=== PATIENT | female | born 1985 | race Caucasian/White ===

== ENCOUNTER → 2022-08-11 15:52 | Outpatient (CLI) | payer OTHER, SELFPAY ==
[2022-08-11 17:39] LABS: Hematocrit 26.6 % (36-46); Hemoglobin 8.9 g/dL (12.0-16.0)
[2022-08-11 18:24] LABS: Free T4, Direct Thyroxine 0.79 ng/dL (0.78-2.19)
[2022-08-11 18:38] LABS: Thyroid Stimulating Hormone 0.864 uIU/mL (0.47-4.68)
== END ==
PROVIDERS: Referring Provider Obstetrics & Gynecology; Visit Provider Obstetrics & Gynecology
DX: O99.280 Endocrine, nutritional and metabolic diseases complicating pregnancy, unspecified trimester (principal); Z3A.30 30 weeks gestation of pregnancy; E03.9 Hypothyroidism, unspecified
CPT/HCPCS: 36415; 84439; 84443; 85014; 85018

== ENCOUNTER → 2022-09-22 10:54 | Outpatient (CLI) | payer OTHER, SELFPAY ==
[2022-09-23 09:29] LABS: Strep Grp B PCR NEG for Grp B Strep
== END ==
PROVIDERS: Visit Provider Obstetrics & Gynecology
DX: Z3A.36 36 weeks gestation of pregnancy (principal); Z34.83 Encounter for supervision of other normal pregnancy, third trimester
CPT/HCPCS: 87653

== ENCOUNTER → 2022-10-01 14:48 | Outpatient (CLI) | payer OTHER, SELFPAY ==
[2022-10-01 16:31] LABS: Hematocrit 32.4 % (36-46); Hemoglobin 10.7 g/dL (12.0-16.0); Mean Corpuscular HGB Conc 33.2 % (30-36); Mean Corpuscular Hemoglobin 27.9 PG (26-34); Platelet Count 243 X10^3/uL (150-400); Red Blood Cell Count 3.85 X10^6/uL (4.0-5.2); Red Cell Distribution Width 16.6 % (11.6-14.8); White Blood Cell Count 7.4 X10^3/uL (4.5-11.0)
[2022-10-01 16:32] LABS: HEMOLYSIS < 15 (0-50); Iron 97 ug/dL (37-170)
[2022-10-01 16:39] LABS: Transferrin 335 mg/dL (206-381)
[2022-10-01 17:01] LABS: Add Manual Diff / Slide Review YES
[2022-10-01 17:03] LABS: Neutrophils Absolute Manual 4366 /uL (3000-5900); Total Cells Counted 100
[2022-10-01 17:04] LABS: RBC Morphology Normal Morphology
[2022-10-01 17:06] LABS: TSH w/ Reflex to FT4 0.41 uIU/mL (0.47-4.68)
[2022-10-01 17:37] LABS: Free T4, Direct Thyroxine 0.77 ng/dL (0.78-2.19)
[2022-10-02 17:33] LABS: Percent Iron Saturation 22 % (15-50); Total Iron Binding Capacity 437 ug/dL (265-497)
== END ==
PROVIDERS: Referring Provider Obstetrics & Gynecology; Visit Provider Obstetrics & Gynecology
DX: O99.013 Anemia complicating pregnancy, third trimester (principal); E03.9 Hypothyroidism, unspecified
CPT/HCPCS: 36415; 83540; 83550; 84439; 84443; 85007; 85025

== ENCOUNTER → 2022-10-02 12:27 | Outpatient (CLI) | payer OTHER, SELFPAY ==
--- NOTE | 2022-10-02 12:28 | DI.US.S_ITS ---
PROCEDURE: US OB FOLLOW UP INDICATIONS: Macrosomia OUTSIDE/PRIOR DATING DATA: Last menstrual period (LMP): Reported as 01/10/22 LMP-based estimated date of delivery (ADEEL): 10/17/22. First dating scan (date and location): Clinical history indicates none has been performed.. Estimated date of delivery (ADEEL) from first dating scan: Not applicable. The calculations are made using the LMP based ADEEL of 10/17/22. Please note that there is a relatively wide range of accuracy of clinically provided LMP dating, and therefore the calculations based on LMP may be significantly in error as result. TECHNIQUE: Real-time scanning was performed of the fetus, with image documentation. Endovaginal scanning: Not performed. COMPARISON: None. FINDINGS: A single living intrauterine gestation is present. Presentation: Vertex. Placenta: Placental position is anterior, without previa. Amniotic fluid index: 17.0 cm, normal range is 5-24 cm. Single deepest vertical pocket is 6.1 cm. heart rate: 163 beats per minute. Maternal cervical canal: Not visualized due to vertex deep pelvic positioning of the fetus. biometry: BPD 8.7 cm, 35 weeks 1 day. Head circumference 33.0 cm, 37 weeks 4 days. Abdominal circumference 40.4 cm, over 40 weeks, disproportionately large to other growth per parameters. Femur length 7.7 cm, 39 weeks 3 days. Clinically estimated gestational age and weight: 37 weeks 3 days, 4339 g, macrosomia. Estimated gestational age from initial scan: Reportedly not performed. Umbilical artery systolic/diastolic ratio assessment was performed yielding values of 1.8, 2.1, 2.5. IMPRESSION: The abdominal circumference is disproportionately large when compared to the 3 additional main growth parameters of development. The current abdominal circumference would predict a current gestational age of over 40 weeks but the remaining 3 would predict a current gestational age of 37 weeks 3 days. Amniotic fluid volume and umbilical artery systolic/diastolic ratios are normal. Reportedly no prior OB ultrasound was performed. Therefore the single reference point currently available is LMP date provided of 01/10/22. As stated above the LMP dates generally have reduced accuracy, and therefore calculations based on reported LMP date may be significantly in error. Please correlate clinically for whether an outside OB ultrasound was performed elsewhere. If so it should be obtained for review and an addendum report could be generated to this study. The delivery date from LMP is currently estimated to be 10/17/22. Current estimated weight is 4339 g, macrosomia (as clinically stated). Dictated by: Noel Roque M.D. on 10/02/2022 at 14:24 Approved by: Noel Roque M.D. on 10/02/2022 at 14:40
== END ==
PROVIDERS: Referring Provider Obstetrics & Gynecology; Visit Provider Obstetrics & Gynecology
DX: O26.843 Uterine size-date discrepancy, third trimester (principal); Z3A.37 37 weeks gestation of pregnancy
CPT/HCPCS: 76816

== ENCOUNTER 2022-10-12 19:04 | Inpatient (IN) | payer OTHER, SELFPAY ==
[2022-10-12 19:57] VITALS: BP 116/72
[2022-10-12 20:43] LABS: Add Manual Diff / Slide Review NO; Basophils Absolute Auto 100 /uL (0-100); Eosinophils Absolute Auto 300 /uL (0-450); Eosinophils Percent Auto 2.6 % (2-4); Hematocrit 32.7 % (36-46); Lymphocytes Absolute Auto 2400 /uL (1100-4500); Lymphocytes Percent Auto 24.7 % (25-40); Mean Corpuscular HGB Conc 33.8 % (30-36); Mean Corpuscular Hemoglobin 28.2 PG (26-34); Mean Corpuscular Volume 83.6 fL (80-100); Monocytes Absolute Auto 600 /uL (0-900); Neutrophils Absolute Auto 6400 /uL (1500-7000); Neutrophils Percent Auto 65.7 % (50-75); Platelet Count 248 X10^3/uL (150-400); Red Blood Cell Count 3.91 X10^6/uL (4.0-5.2); Red Cell Distribution Width 16.5 % (11.6-14.8); White Blood Cell Count 9.8 X10^3/uL (4.5-11.0)
[2022-10-12] MEDS: miSOPROStoL 25 MCG TABLET 50 MCG PO (20:46)
[2022-10-12 21:03] LABS: Glucose 116 mg/dL (70-100)
[2022-10-13] MEDS: ZOLPIDEM 5 MG TABLET PO (00:45)
[2022-10-13] MEDS: miSOPROStoL 25 MCG TABLET 50 MCG PO ×2 (00:45→06:43)
[2022-10-13] MEDS: LACTATED RINGERS 1,000 ML 100 ML IV (06:29)
--- NOTE | 2022-10-13 07:23 | P.HPOB_ITS ---
OB HPI Date/Time Date of admission: 10/12/22 Date Patient Seen: 10/13/22 Time Patient Seen: 07:23 History of Present Condition Chief complaint: IUP 39+2 wks EGA, Macrosomia, GBS NEG : 2 Para: 1 Estimated Date of Delivery: 10/17/22 Estimated Gestational Age (weeks): 39+2 Narrative: Nazia Leyva is a 36 year old , ADEEL 10/17/2022 admitted now at 39+ 5 weeks gestational age for ripening/induction due to macrosomia. course has been largely uneventful with solid dating and normal milestones throughout. Size greater than dates noted in 3rd trimester despite negative 1 hour GDM screen and recent ultrasound on 10/02/2022 confirms macrosomia with an EFW of 4339 gms in comparison to her previous vaginal delivery of a 7 lb. 9 oz. infant. GBS is negative. Indications Indication for induction OB: other ( macrosomia) History of Present care: good care Dating criteria: LMP confirmed by 1st trimester US Ultrasounds: normal 1st trimester US, normal mid trimester US and abnormal US findings (Macrosomia, 3rd trimester) Obstetrical complications: other (Macrosomia) Medical complications: none Preadmission Labs Blood type: A (+) positive -: Antibody screen: negative, GBS status: negative, HBsAG: negative, HIV: negative and RPR/VDLR: negative -: Chlamydia screen: not detected and Gonorrhea screen: not detected -: Rubella: immune and Varicella: immune HCT: 32.7 HCAB: negative PAP: Normal Quad screen: Normal (AFP testing negative) Cell-free DNA: Low risk female 1 hr GTT: 126 Prior (ies) History: x1 Evaluation Evaluation Baseline heart rate: 155 Variability: Moderate (11-25) monitor accelerations: Present Monitor Decelerations: Episodic and Variable Contraction Frequency (minutes): 4 Uterine Contraction Intensity: Mild Category of Tracing: Reactive Status: Category ll Dilation (cm): 3 Effacement (%): 60 Dilation: 3-4 cm Effacement: 60-70% station: -2 Position of cervix: mid Consistency: soft Desouza score: 8 Non-invasive Membranes Rupture Test: positive Comments: SROM, 0837, possible very light meconium staining [facility] Medical History (Updated 10/07/22 @ 10:25 by Enrique Vogt MD) Acne (~2001) Allergies (~1993) Anemia (~2002) Anxiety (~2011) Chicken pox (~1993) Depression (~2007) History of urinary incontinence (~2019) Hypothyroidism (~2012) Iron deficiency anemia PVC (premature ventricular contraction) (~1992) Seasonal allergies Surgical History (Updated 08/01/22 @ 21:05 by Casi Baum) Anesthesia History of dental surgery (~2000) Family History (Updated 08/01/22 @ 21:09 by Casi Baum) Mother Hypertension Hyperlipidemia Father Hypertension Skin cancer Kidney disease Hyperlipidemia Grandfather Kidney disease Lung cancer Hypertension Grandfather Heart attack Grandmother Heart disease Grandmother Bipolar disorder Mental health problem Brother Mental health problem Social History marital status: number of children: 1 household members: spouse and children lives independently: Yes caregiver/support person: Yes housing: condominium (duplex house) pets and animals: No education level: master's degree (pharmacology, drug development research) occupational status: previously employed current occupational exposures/hazards: No special becky needs: No travel history: recent (domestic only including cross-country move) seatbelt use: always helmet use: Yes water heater temp set < 120 deg: Yes working smoke detector in home: Yes fire extinguisher in home: Yes carbon monox detector in home: Yes firearms in home: No do you feel safe at home: Yes Smoking Status: Never smoker second hand exposure: No alcohol intake: former (Occasionally when not ) substance use type: does not use during the past year weight has: remained stable daily servings fruits/ve-4 caffeine: No Type(s) of exercise: none Meds Home Medications and Allergies Home Medications Medication Instructions Recorded Confirmed Type ferrous sulfate 325 mg (65 mg 325 mg PO DAILY 07/01/22 10/12/22 History iron) tablet loratadine 10 mg tablet (Allergy 10 mg PO DAILY 07/01/22 10/12/22 History Relief (loratadine)) prenat.vits,chidi,vai-qnbk-uofjp 1 tab PO DAILY 07/01/22 10/12/22 History sertraline 100 mg tablet (Zoloft) 100 mg PO DAILY 07/01/22 10/12/22 History levothyroxine 125 mcg tablet 125 mcg PO DAILY #60 tabs 08/25/22 10/12/22 Rx (Synthroid) Allergies Allergy/AdvReac Type Severity Reaction Status Date / Time No Known Drug Allergies Allergy Verified 10/12/22 19:59 Review of Systems Review of Systems Narrative: Problem-specific ROS positives included in HPI OB Exam Vital signs Blood Pressure: 111/72 Pulse Rate: 80 Respiratory Rate: 15 Temperature: 98.6 F HENMT Head: normal to inspection, normocephalic and atraumatic Eyes General: appearance normal, both eyes and all related structures Resp Effort & Inspection: normal respiratory effort and able to speak in complete sentences Auscultation: clear to auscultation bilaterally Cardio Rate: regular rate Rhythm: regular rhythm Heart Sounds: S1 normal, S2 normal and no murmurs Extremities Lower extremity: Yes normal to inspection GI Inspection: normal to inspection Palpation: Yes soft and Yes no hepatosplenomegaly Uterus Location (Fundal Height): 38 Estimated Weight (lbs): 9 Objective Imaging OB US 10/02/2022: Radiologist's impression: PROCEDURE:? US OB FOLLOW UP ? INDICATIONS:? Macrosomia ? OUTSIDE/PRIOR DATING DATA:? Last menstrual period (LMP):? Reported as 01/10/22 LMP-based estimated date of delivery (ADEEL):? 10/17/22.? First dating scan (date and location):? Clinical history indicates none has been performed..? Estimated date of delivery (ADEEL) from first dating scan:? Not applicable. The calculations are made using the LMP based ADEEL of 10/17/22.? Please note that there is a relatively wide range of accuracy of clinically provided LMP dating, and therefore the calculations based on LMP may be significantly in error as result. ? TECHNIQUE: Real-time scanning was performed of the fetus, with image documentation.? Endovaginal scanning:? Not performed. ? COMPARISON:? None. ? FINDINGS:? A single living intrauterine gestation is present.? Presentation:? Vertex.? Placenta:? Placental position is anterior, without previa.? ? Amniotic fluid index:? 17.0 cm, normal range is 5-24 cm. Single deepest vertical pocket is 6.1 cm.? ? heart rate:? 163 beats per minute.? Maternal cervical canal:? Not visualized due to vertex deep pelvic positioning of the fetus. ? biometry: ? BPD 8.7 cm, 35 weeks 1 day. Head circumference 33.0 cm, 37 weeks 4 days. Abdominal circumference 40.4 cm, over 40 weeks, disproportionately large to other growth per parameters. Femur length 7.7 cm, 39 weeks 3 days. Clinically estimated gestational age and weight:? 37 weeks 3 days, 4339 g, macrosomia.? Estimated gestational age from initial scan:? Reportedly not performed. ? Umbilical artery systolic/diastolic ratio assessment was performed yielding values of 1.8, 2.1, 2.5. ? IMPRESSION:? The abdominal circumference is disproportionately large when compared to the 3 additional main growth parameters of development.? The current abdominal circumference would predict a current gestational age of over 40 weeks but the remaining 3 would predict a current gestational age of 37 weeks 3 days.? Amniotic fluid volume and umbilical artery systolic/diastolic ratios are normal. ? Reportedly no prior OB ultrasound was performed.? Therefore the single reference point currently available is LMP date provided of 01/10/22.? As stated above the LMP dates generally have reduced accuracy, and therefore calculations based on reported LMP date may be significantly in error.? Please correlate clinically for whether an outside OB ultrasound was performed elsewhere.? If so it should be obtained for review and an addendum report could be generated to this study. ? The delivery date from LMP is currently estimated to be 10/17/22.? Current estimated weight is 4339 g, macrosomia (as clinically stated). Labs 10/12/22 20:25 10/12/22 20:25 Labs: Laboratory Results - last 24 hr 10/12/22 10/12/22 10/12/22 20:25 20:25 20:25 WBC 9.8 RBC 3.91 L Hgb 11.0 L Hct 32.7 L MCV 83.6 MCH 28.2 MCHC 33.8 RDW 16.5 H Plt Count 248 Neut % (Auto) 65.7 Lymph % (Auto) 24.7 L [place] % (Auto) 6.0 Eos % (Auto) 2.6 Baso % (Auto) 1.0 Neut # (Auto) 6400 Lymph # (Auto) 2400 [place] # (Auto) 600 Eos # (Auto) 300 Baso # (Auto) 100 Glucose 116 H Blood Type A Positive Antibody Screen Negative Assessment and Plan Assessment and Plan Assessment and Plan narrative: ASSESSMENT 1. Intrauterine , 39+2 wks EGA 2. Macrosomia 3. Anemia, chronic 4. GBS negative status PLAN 1. Admit for ripening/induction 2. See admission orders
[2022-10-13 09:42] VITALS: BP 111/72; PULSE 80; RESP 15; TEMP 37
[2022-10-13] MEDS: OXYTOCIN 10 UNIT/ML VIAL IM (14:37)
--- NOTE | 2022-10-13 14:57 | PM.OBPRVD ---
Events: Other (Macrosomia) Labor & Delivery Delivery date: 10/13/22 Intrapartal Events: None Cervical ripening method: per misoprostal protocol Induction method: none Delivery monitor: external FHT and external uterine Route of delivery: Episiotomy description: None L&D Laceration Description: Perineal - 2nd Degree Delivery repair: chromic Estimated blood loss (mL): 75 Anesthesia Type: Local Complications: None Narrative: Following a minute 2nd stage, the patient delivered spontaneously over an intact perineum a viable female infant found to be vigorous at . A single nuchal cord was noted and reduced following delivery of the infant. Skin to skin contact was initiated immediately and delayed cord clamping performed. Once the umbilical cord was doubly clamped and cut, sample of cord blood was obtained for routine studies. With gentle cord traction and suprapubic countertraction, the placenta was delivered easily and upon inspection, a marginal cord insertion was noted with three-vessel cord. The placenta itself was intact. IM Pitocin was administered immediately following delivery of the placenta and post delivery bleeding was easily controlled. Inspection of the perineum showed a superficial second-degree perineal laceration which was closed with 2-0 chromic in the usual manner. Sponge needle count following procedure was correct and both mother and infant were doing well at the completion of the delivery process. Baby 1: Infant gender: Female Presentation: vertex Position: Left Occiput Anterior Placenta delivery description: Spontaneous Cord Vessel Description: 3 Vessels and Nuchal Cord score (1 min): 9 score (5 min): 9 weight: 7 lb 9.801 oz Plan for aftercare: Routine care
[2022-10-13] MEDS: IBUPROFEN 600 MG TABLET PO (19:58)
[2022-10-14 06:17] LABS: Add Manual Diff / Slide Review NO; Basophils Absolute Auto 100 /uL (0-100); Basophils Percent Auto 0.6 % (0-2); Eosinophils Absolute Auto 300 /uL (0-450); Eosinophils Percent Auto 1.9 % (2-4); Hematocrit 28.8 % (36-46); Hemoglobin 9.7 g/dL (12.0-16.0); Lymphocytes Absolute Auto 3500 /uL (1100-4500); Lymphocytes Percent Auto 27.2 % (25-40); Mean Corpuscular HGB Conc 33.5 % (30-36); Mean Corpuscular Hemoglobin 28.3 PG (26-34); Mean Corpuscular Volume 84.7 fL (80-100); Monocytes Absolute Auto 900 /uL (0-900); Monocytes Percent Auto 7.1 % (3-14); Neutrophils Absolute Auto 8200 /uL (1500-7000); Neutrophils Percent Auto 63.2 % (50-75); Platelet Count 222 X10^3/uL (150-400); Red Blood Cell Count 3.41 X10^6/uL (4.0-5.2); Red Cell Distribution Width 16.6 % (11.6-14.8)
[2022-10-14] MEDS: DOCUSATE 100 MG CAPSULE PO (08:47)
[2022-10-14] MEDS: SERTRALINE 50 MG TABLET 100 MG PO (08:47)
[2022-10-14] MEDS: LORATADINE 10 MG TABLET PO (08:47)
[2022-10-14] MEDS: IBUPROFEN 600 MG TABLET PO ×2 (09:07→16:26)
[2022-10-14] MEDS: LEVOTHYROXINE 125 MCG TABLET PO (09:17)
--- NOTE | 2022-10-14 12:52 | PM.OBDS.1 ---
Discharge Providers Provider Date of admission: 10/12/22 19:04 Discharge Date: 10/14/22 Consults: 10/12/22 19:13 Consult to Anesthesiology Urgent Comment: Consulting Provider: Enrique Vogt Reason for consultation: Epidural Has provider been notified: No 10/14/22 14:53 Consult to [employer] Records Clerk Routine Comment: Discharge provider: Enrique Vogt MD Summary Hospital Course Date Patient Seen: 10/14/22 Time Patient Seen: 12:52 Diagnoses: Intrauterine gestation, 39+ 2 weeks gestational age Suspected macrosomia Chronic anemia GBS negative status Hospital Course: Nazia was admitted on the evening 10/12/2022 for cervical ripening and induction due to suspected macrosomia based on an ultrasound performed in mid September which demonstrated an estimated weight of greater than 4300 g. Patient received a total of 3 doses of oral Cytotec and labor ensued. On the morning of 10/13/2022 patient experienced spontaneous rupture membranes demonstrating light meconium and she progressed well without Pitocin augmentation to deliver on the afternoon of 10/13/2022 a viable female infant with Apgars of 9/9, weight 3453 g (7 lb 9.8 oz). Following delivery both mother and baby have done extremely well with the mother experiencing prompt return of bowel and bladder function, she is ambulating independently, tolerating regular diet, and her pain is well controlled with oral pain medications. She will be discharged at this time to home after counseling regarding precautionary symptoms, limitations activity, medications, and plans for follow-up which will be in 6 weeks. The patient will resume all pre delivery medications and an electronic prescription for ibuprofen 600 mg p.o. q.6 hours was sent to her pharmacy. Peripartum Data Delivery Method: Natural Vaginal Laceration Description: Perineal - 2nd Degree Episiotomy description: None Procedures: Spontaneous vaginal Repair, second-degree perineal laceration complications: none 1: Gender: Female Disposition of : home Status at Discharge Cognitive/behavioral status at discharge: oriented Functional status at discharge: independent ambulation Overall status at discharge: patient is progressing back to baseline Time Spent with Patient Time attestation: Total time spent providing and/or coordinating discharge services: Time spent: Less than 30 minutes Objective Labs 10/14/22 05:57 10/12/22 20:25 Labs: Laboratory Results - last 24 hr 10/14/22 05:57 WBC 13.0 H RBC 3.41 L Hgb 9.7 L Hct 28.8 L MCV 84.7 MCH 28.3 MCHC 33.5 RDW 16.6 H Plt Count 222 Neut % (Auto) 63.2 Lymph % (Auto) 27.2 [place] % (Auto) 7.1 Eos % (Auto) 1.9 L Baso % (Auto) 0.6 Neut # (Auto) 8200 H Lymph # (Auto) 3500 [place] # (Auto) 900 Eos # (Auto) 300 Baso # (Auto) 100 Exam Const General: cooperative and comfortable Nutritional Appearance: average body habitus Orientation: alert and oriented x3 HENMT Head: normal to inspection, atraumatic and abrasion Ears: hearing grossly normal bilaterally Face and sinus: face symmetric Eyes General: appearance normal, both eyes and all related structures Conjunctivae: conjunctivae normal Sclera: sclerae normal EOM: EOM intact bilaterally Neck Neck: normal visual inspection Resp Effort & Inspection: normal respiratory effort and able to speak in complete sentences GI Inspection: normal to inspection Palpation: soft and no hepatosplenomegaly External Female Exam: other (No significant bleeding noted) Extrem General: no calf tenderness Psych Appearance: grossly normal Mental Status: mental status grossly normal Speech and Movement: speech and movement normal Mood: congruent mood Affect: normal affect Attitude: cooperative Thought Process: normal Thought Content: normal Judgment: judgment good Discharge Plan Discharge Plan Patient Disposition: Home Provider Discharge Comment: Please review the written instructions you received when you were discharged from the hospital. Your follow-up appointment will be scheduled for 6 weeks after delivery and I look forward to seeing you then. If however in the meanwhile you have any issues, concerns, or questions, please contact me either through the office phone at [phone], or via the patient portal. Discharge orders & Medications Prescriptions: New ibuprofen 600 mg Tablet 600 mg PO Q6HR PRN (Reason: Pain, Mild (1-3)) Qty: 60 2RF Continued levothyroxine [Synthroid] 125 mcg tablet 125 mcg PO DAILY Qty: 60 3RF prenat.vits,chidi,cdz-iqar-udhlw Tablet 1 tab PO DAILY sertraline [Zoloft] 100 mg tablet 100 mg PO DAILY loratadine [Allergy Relief (loratadine)] 10 mg tablet 10 mg PO DAILY ferrous sulfate 325 mg (65 mg iron) tablet 325 mg PO DAILY Discharge Health Status Multidrug resistant organism: No MDRO Diet/Activity/Treatments Diet: Diet as Tolerated Activity: As tolerated Other treatments: [id number] Tylenol may be used for additional pain relief. [id number] stool softeners and/or MiraLax may be used as needed for constipation. Skin/Wound/Dressing Care Report to your healthcare provider any signs of infection, such as:: chills, fever, increased pain, unusual drainage and unusual redness Dressing: N/A Visit Report/Discharge Packet Instructions: DI for Labor and Delivery, Vaginal , DI for and Nipple Soreness
[2022-10-14 16:20] VITALS: BP 108/58; PULSE 89; RESP 14; TEMP 37.1
== END 2022-10-14 18:45 | disposition home or self-care (01) | DRG 807 ==
PROVIDERS: Admitting Provider Obstetrics & Gynecology; Referring Provider Obstetrics & Gynecology; Visit Provider Obstetrics & Gynecology
DX: O36.63X0 Maternal care for excessive fetal growth, third trimester, not applicable or unspecified (principal); Z37.0 Single live birth; Z3A.39 39 weeks gestation of pregnancy; O70.1 Second degree perineal laceration during delivery; O99.02 Anemia complicating childbirth; D64.89 Other specified anemias
CPT/HCPCS: 36415; 59050; 59200; 59410; 82947; 85025; 86850; 86900; 86901; G0379; J2590

== ENCOUNTER → 2022-11-23 15:00 | Outpatient (CLI) | payer OTHER, SELFPAY ==
[2022-11-23 16:14] LABS: Free T3, Triiodothyronine Free 4.74 pg/mL (2.77-5.27)
[2022-11-23 16:35] LABS: Thyroid Stimulating Hormone < 0.015 uIU/mL (0.47-4.68)
== END ==
PROVIDERS: Referring Provider Physician Assistant Medical; Visit Provider Physician Assistant Medical
DX: E03.9 Hypothyroidism, unspecified (principal)
CPT/HCPCS: 36415; 84439; 84443; 84481

== ENCOUNTER 2023-05-11 08:15 | Outpatient (RCR) | payer OTHER, SELFPAY ==
--- NOTE | 2023-01-21 16:20 | PT.OIE ---
Current Diagnoses Pelvic muscle wasting (01/21/23) Unspecified urinary incontinence (01/21/23) Past Medical History (Last Updated 08/01/22 @ 21:05 by Casi Baum) Acne (~2001) Allergies (~1993) Anemia (~2002) Anxiety (~2011) Chicken pox (~1993) Depression (~2007) History of urinary incontinence (~2019) Hypothyroidism (~2012) Iron deficiency anemia PVC (premature ventricular contraction) (~1992) Seasonal allergies Past Surgical History (Last Updated 08/01/22 @ 21:05 by Casi Baum) Anesthesia History of dental surgery (~2000) Visit Care Team Role Provider Type Eugenio BIBI Provider Primary Care Provider Non-Staff Specialty: Medical Address: Phone: Email: Jessie Carranza PA-C Attending Provider Advanced Loading Supervisor Referring Provider Specialty: Medical Address: [address] [place] [address], [address], [place], [address] Phone: Fax: Email: Physical Therapy Initial Evaluation PT-OP-A Visit Information Start: 01/21/23 15:05 Freq: Status: Active Protocol: Document 01/21/23 15:07 ON LICENSE OF [facility] (Rec: 01/21/23 15:44 ON LICENSE OF [facility] [id number]) Out-Patient Physical Therapy Visit Information Visit Information Visit Type Initial Evaluation Visit Start Time 15:07 Visit Stop Time 15:52 Total Visit Minutes 45 Visit Number 1 Evaluation Information Evaluation Date 01/21/23 PT-OP-B Current Condition Start: 01/21/23 15:05 Freq: Status: Active Protocol: Document 01/21/23 15:07 [facility] (Rec: 01/21/23 15:44 ON LICENSE OF [facility] [id number]) Current Condition History of Current Condition Onset Date October 2022 Current Complaints urinary stress and urge incontinence History of Current Condition 10/13/22 had her second delivery and symptoms began after her first delivery September of 2019, she had a little tearing both times. She notes both symptoms of stress incontinence as well as urgency. Occasionally wakes up at night to void. She has a pad or absorbant underware on daily and most days she can go through the whole day and sometimes when she can't. Treatment Goals Patient/Caregiver Goals treatment goals include decreasing urinary incontinence and improving strength of the pelvic floor PT-OP-C Subjective Start: 01/21/23 15:05 Freq: Status: Active Protocol: Document 01/21/23 15:07 [facility] (Rec: 01/26/23 15:04 ON LICENSE OF [facility] [id number]) Patient Questionnaires Pelvic Pain and Urgency/Frequency Patient Symptom Scale Pelvic Pain Score 3 PT-OP-I Pelvic Floor Start: 01/21/23 15:05 Freq: Status: Active Protocol: Document 01/21/23 15:07 [facility] (Rec: 01/21/23 15:44 [facility] [id number]) Pelvic Floor Assessment Urine Pelvic Floor Surgery No Urinary Symptoms Urge Sensation Leakage Size Medium Leakage Cause Cough,Exercise,Lifting,Sneeze, Urge Leaks Per Day 3 Voiding Frequency 10 per day Nocturia 1 Pads Used In 24 Hours 3 Urine Pad Type Maxi Pad Pelvic Clock Pelvic Clock 12-3 Atrophy Pelvic Clock 3-6 Atrophy Pelvic Clock 6-9 Atrophy Pelvic Clock 9-12 Atrophy Pelvic Clock Other weakness and atrophy noted througout the pelvic clock Contraction Ability Voluntary Contraction Weak Voluntary Relaxation Weak Manual Muscle Testing Left 1 Manual Muscle Testing Right 1 Manual Muscle Testing Anterior 1 Manual Muscle Testing Posterior 2 Muscle Endurance (Seconds) 2 Comments Pelvic Floor Comments very poor endurance to sustain a pelvic floor contraction PT-OP-M Strength Start: 01/21/23 15:05 Freq: Status: Active Protocol: Document 01/21/23 15:07 [facility] (Rec: 01/26/23 15:03 ON LICENSE OF [facility] [id number]) Trunk Strength Trunk Manual Muscle Testing Testing Position Supine Core Stabilization core stabilization weakness of the transverse abdominal muscles , it is difficult to elicit a contraction of the transverse abdominals in supine PT-OP-Q Treatments Start: 01/21/23 15:05 Freq: Status: Active Protocol: Document 01/21/23 15:07 [facility] (Rec: 01/21/23 16:00 ON LICENSE OF [facility] [id number]) Therapeutic Exercises Supine Exercises supine ball squeeze Comments ball squeeze with pelvic floor facilitation pt can only hold 2-3 seconds PT-OP-T Assessment and Plan Start: 01/21/23 15:05 Freq: Status: Active Protocol: Document 01/21/23 15:07 [facility] (Rec: 01/21/23 16:08 ON LICENSE OF [facility] [id number]) Physical Therapy Assessment Rehab Potential Rehabilitation Potential Excellent Evaluation Complexity Number of Personal Factors/Comorbidities 0 Number of Body Systems Impaired 1-2 Clinical Presentation at Evaluation Stable Impairments Impairments Activity Tolerance,Functional Activities,Strength,Tone Other Impairments urinary stress incontinence Goals 3 Impairment urinary stress incontinence that is occuring approx 3 times per day and Nazia is wearing maxi pads for protection Jail Goal (LTG) Nazia reports a overall reduction in urinary leakage and is no longer needing to depend on Maxi pads for protection LTG Duration 12 weeks 2 Impairment Decreased endurance of the pelvic floor Short Term Goal (STG) Nazia is able to demonstrate a 10 second hold of her pelvic floor on EMG biofeedback in the supine position STG Duration 5 weeks Jail Goal (LTG) Nazia is able to sustain a pelvic floor muscle contraction x 10 seconds in standing LTG Duration 12 weeks 1 Impairment pelvic floor weakness with MMT of 1/5 for anterior and lateral bar[place] and 2/5 MMT for the posterior wall of the levator ani Short Term Goal (STG) Nazia is educated on pelvic floor anatomy and is given a home exercise program for pelvic floor strengthening STG Duration 3 weeks Jail Goal (LTG) Nazia demonstrates a increase in strength of her pelvic floor muscles and is able to raise he strength by 1 muscle grade or better for improved support to the bladder LTG Duration 12 weeks Assessment Summary Assessment Nazia is a 37 year old female who is 3 months with her second baby who presents with urinary stress incontinence symptoms. She notes her symptoms started after her first delivery but have worsened since her second delivery. At this point she is experiencing both urinary urgency as well as stress incontinence. She wears maxi pads for protection and usually changes her pad one time per day. Leakage is increased with cough or sneeze and walking to the toilet with a urge. With pelvic floor exam today Nazia present with weakness in all aspects of her pelvic floor, she tests 2/5 MMT for the posterior wall and 1/5 for lateral and anterior bar[place]ona of the levator ani. She has poor sensation of pelvic floor contraction and lacks endurance to sustain a pelvic floor contraction more than a few seconds in the supine position. She was given a exercise using adductor assit today to help facilitate her pelvic floor and she tolerated this well. Nazia is a good candidate for pelvic floor PT. Physical Therapy Plan Frequency and Duration Frequency of Treatment 1x/Week Duration of treatment (weeks) 12 Plan of Care Start Date 01/21/23 Plan of Care End Date 04/15/23 Therapeutic Interventions Therapeutic Interventions Home Exercise Program, Neuromuscular Re-education, Patient/Caregiver Education, Self-Care/Home Management, Therapeutic Exercises Modalities Biofeedback Next Visit Focus/Plan Next Note Type Treatment Note Next Visit Plan Work with EMG biofeedback for pelvic floor endurance training, add in lateral hip stabilization exercises and core stabilization ex
--- NOTE | 2023-01-21 16:20 | PT.OPPOC ---
Physical, Occupational & Speech Therapy At [facility] Current Diagnoses Pelvic muscle wasting (01/21/23) Unspecified urinary incontinence (01/21/23) Visit Care Team Role Provider Type Eugenio MTZ Provider Primary Care Provider Non-Staff Specialty: Medical Address: Phone: Email: Jessie Carranza PA-C Attending Provider Advanced Transmitter Supervisor Referring Provider Specialty: Medical Address: [address] [place] [address], [address], [place], [address] Phone: Fax: Email: Plan Of Care PT-OP-T Assessment and Plan Start: 01/21/23 15:05 Freq: Status: Active Protocol: Document 01/21/23 15:07 [facility] (Rec: 01/21/23 16:08 [facility] [id number]) Physical Therapy Assessment Rehab Potential Rehabilitation Potential Excellent Evaluation Complexity Number of Personal Factors/Comorbidities 0 Number of Body Systems Impaired 1-2 Clinical Presentation at Evaluation Stable Impairments Impairments Activity Tolerance,Functional Activities,Strength,Tone Other Impairments urinary stress incontinence Goals 3 Impairment urinary stress incontinence that is occurring approx 3 times per day and Nazia is wearing maxi pads for protection [employer] Goal (LTG) Nazia reports a overall reduction in urinary leakage and is no longer needing to depend on Maxi pads for protection LTG Duration 12 weeks 2 Impairment Decreased endurance of the pelvic floor Short Term Goal (STG) Nazia is able to demonstrate a 10 second hold of her pelvic floor on EMG biofeedback in the supine position STG Duration 5 weeks Skilled Nursing Goal (LTG) Nazia is able to sustain a pelvic floor muscle contraction x 10 seconds in standing LTG Duration 12 weeks 1 Impairment pelvic floor weakness with MMT of 1/5 for anterior and lateral bar[place]ona and 2/5 MMT for the posterior wall of the levator ani Short Term Goal (STG) Nazia is educated on pelvic floor anatomy and is given a home exercise program for pelvic floor strengthening STG Duration 3 weeks [employer] Goal (LTG) Nazia demonstrates a increase in strength of her pelvic floor muscles and is able to raise he strength by 1 muscle grade or better for improved support to the bladder LTG Duration 12 weeks Assessment Summary Assessment Nazia is a 37 year old female who is 3 months with her second baby who presents with urinary stress incontinence symptoms. She notes her symptoms started after her first delivery but have worsened since her second delivery. At this point she is experiencing both urinary urgency as well as stress incontinence. She wears maxi pads for protection and usually changes her pad one time per day. Leakage is increased with cough or sneeze and walking to the toilet with a urge. With pelvic floor exam today Nazia presents with weakness in all aspects of her pelvic floor, she tests 2/5 MMT for the posterior wall and 1/5 for lateral and anterior bar[place]ona of the levator ani. She has poor sensation of pelvic floor contraction and lacks endurance to sustain a pelvic floor contraction more than a few seconds in the supine position. She was given a exercise using adductor assit today to help facilitate her pelvic floor and she tolerated this well. Nazia is a good candidate for pelvic floor PT. Physical Therapy Plan Frequency and Duration Frequency of Treatment 1x/Week Duration of treatment (weeks) 12 Plan of Care Start Date 01/21/23 Plan of Care End Date 04/15/23 Therapeutic Interventions Therapeutic Interventions Home Exercise Program, Neuromuscular Re-education, Patient/Caregiver Education, Self-Care/Home Management, Therapeutic Exercises Modalities Biofeedback Next Visit Focus/Plan Next Note Type Treatment Note Next Visit Plan Work with EMG biofeedback for pelvic floor endurance training, add in lateral hip stabilization exercises and core stabilization ex Plan of Care Dates Plan of Care Start Date 01/21/23 Plan of Care End Date 04/15/23 Electronically Signed by: Marilyn Velazquez, PT 01/26/23 9826 If you are in agreement with this Plan of Care, please return a signed and dated copy. I have reviewed this Plan of Care and certify that the skilled therapy services above are required to meet the patient?s needs. Physician Signature Date Printed Name and Credentials Clinical Instructor Signature Printed Name and Credentials
--- NOTE | 2023-02-02 13:32 | PT.OTN ---
Current Diagnoses Pelvic muscle wasting (02/02/23) Unspecified urinary incontinence (02/02/23) Physical Therapy Treatment Note PT-OP-A Visit Information Start: 01/21/23 15:05 Freq: Status: Active Protocol: Document 02/02/23 09:50 [facility] (Rec: 02/02/23 10:35 [facility] [id number]) Out-Patient Physical Therapy Visit Information Visit Information Visit Type Treatment Note Visit Start Time 09:50 Visit Stop Time 10:30 Total Visit Minutes 40 Visit Number 2 PT-OP-B Current Condition Start: 01/21/23 15:05 Freq: Status: Active Protocol: Document 01/21/23 15:07 [facility] (Rec: 01/21/23 15:44 [facility] [id number]) Current Condition History of Current Condition Onset Date October 2022 Current Complaints urinary stress and urge incontinence History of Current Condition 10/13/22 had her second delivery and symptoms began after her first delivery September of 2019, she had a little tearing both times. She notes both symptoms of stress incontinence as well as urgency. Occasionally wakes up at night to void. She has a pad or absorbant underware on daily and most days she can go through the whole day and sometimes when she can't. Treatment Goals Patient/Caregiver Goals treatment goals include decreasing urinary incontinence and improving strength of the pelvic floor PT-OP-C Subjective Start: 01/21/23 15:05 Freq: Status: Active Protocol: Document 02/02/23 09:50 [facility] (Rec: 02/02/23 10:35 [facility] [id number]) OP-PT Subjective Patient Comments Patient Comments Nazia notes she is feeling a little more with her exercises PT-OP-I Pelvic Floor Start: 01/21/23 15:05 Freq: Status: Active Protocol: Document 01/21/23 15:07 [facility] (Rec: 01/21/23 15:44 [facility] [id number]) Pelvic Floor Assessment Urine Pelvic Floor Surgery No Urinary Symptoms Urge Sensation Leakage Size Medium Leakage Cause Cough,Exercise,Lifting,Sneeze, Urge Leaks Per Day 3 Voiding Frequency 10 per day Nocturia 1 Pads Used In 24 Hours 3 Urine Pad Type Maxi Pad Pelvic Clock Pelvic Clock 12-3 Atrophy Pelvic Clock 3-6 Atrophy Pelvic Clock 6-9 Atrophy Pelvic Clock 9-12 Atrophy Pelvic Clock Other weakness and atrophy noted througout the pelvic clock Contraction Ability Voluntary Contraction Weak Voluntary Relaxation Weak Manual Muscle Testing Left 1 Manual Muscle Testing Right 1 Manual Muscle Testing Anterior 1 Manual Muscle Testing Posterior 2 Muscle Endurance (Seconds) 2 Comments Pelvic Floor Comments very poor endurance to sustain a pelvic floor contraction PT-OP-M Strength Start: 01/21/23 15:05 Freq: Status: Active Protocol: Document 01/21/23 15:07 [facility] (Rec: 01/26/23 15:03 [facility] [id number]) Trunk Strength Trunk Manual Muscle Testing Testing Position Supine Core Stabilization core stabilization weakness of the transverse abdominal muscles , it is difficult to elicit a contraction of the transverse abdominals in supine PT-OP-Q Treatments Start: 01/21/23 15:05 Freq: Status: Active Protocol: Document 02/02/23 09:50 [facility] (Rec: 02/02/23 10:35 [facility] [id number]) Therapeutic Exercises Supine Exercises hip ER with therabAND Reps/Minutes 2 x 10 reps pelvic floor long holds Reps/Minutes 10 reps holding 10 seconds and resting 10 sec Comments averag 2 max 4.7 Self-Care/Home Management Treatment Education Patient Education Home Exercise Program Other Education Nazia was educated in the urge deference technique and bladder retraining PT-OP-T Assessment and Plan Start: 01/21/23 15:05 Freq: Status: Active Protocol: Document 02/02/23 09:50 [facility] (Rec: 02/02/23 13:31 [facility] [id number]) Physical Therapy Assessment Goals 3 Impairment urinary stress incontinence that is occuring approx 3 times per day and Nazia is wearing maxi pads for protection [facility] Goal (LTG) Nazia reports a overall reduction in urinary leakage and is no longer needing to depend on Maxi pads for protection LTG Duration 12 weeks 2 Impairment Decreased endurance of the pelvic floor Short Term Goal (STG) Nazia is able to demonstrate a 10 second hold of her pelvic floor on EMG biofeedback in the supine position STG Duration 5 weeks [facility] Goal (LTG) Nazia is able to sustain a pelvic floor muscle contraction x 10 seconds in standing LTG Duration 12 weeks 1 Impairment pelvic floor weakness with MMT of 1/5 for anterior and lateral bar[place]ona and 2/5 MMT for the posterior wall of the levator ani Short Term Goal (STG) Nazia is educated on pelvic floor anatomy and is given a home exercise program for pelvic floor strengthening STG Duration 3 weeks [employer] Goal (LTG) Nazia demonstrates a increase in strength of her pelvic floor muscles and is able to raise he strength by 1 muscle grade or better for improved support to the bladder LTG Duration 12 weeks Assessment Summary Assessment Nazia did better today with pelvic floor isolation. I did add in lateral hip rotation strengthening for her as well and she had improved pelvic floor contractions following. Physical Therapy Plan Frequency and Duration Frequency of Treatment 1x/Week Duration of treatment (weeks) 12 Plan of Care Start Date 01/21/23 Plan of Care End Date 04/15/23 Next Visit Focus/Plan Next Note Type Treatment Note Next Visit Plan review all new exercises and begin NMES next visit for improved pelvic floor sensation
--- NOTE | 2023-02-02 13:33 | PT.OTN ---
Current Diagnoses Pelvic muscle wasting (02/02/23) Unspecified urinary incontinence (02/02/23) Physical Therapy Treatment Note PT-OP-A Visit Information Start: 01/21/23 15:05 Freq: Status: Active Protocol: Document 02/02/23 09:50 [facility] (Rec: 02/02/23 10:35 [facility] [id number]) Out-Patient Physical Therapy Visit Information Visit Information Visit Type Treatment Note Visit Start Time 09:50 Visit Stop Time 10:30 Total Visit Minutes 40 Visit Number 2 PT-OP-B Current Condition Start: 01/21/23 15:05 Freq: Status: Active Protocol: Document 01/21/23 15:07 [facility] (Rec: 01/21/23 15:44 [facility] [id number]) Current Condition History of Current Condition Onset Date October 2022 Current Complaints urinary stress and urge incontinence History of Current Condition 10/13/22 had her second delivery and symptoms began after her first delivery September of 2019, she had a little tearing both times. She notes both symptoms of stress incontinence as well as urgency. Occasionally wakes up at night to void. She has a pad or absorbant underware on daily and most days she can go through the whole day and sometimes when she can't. Treatment Goals Patient/Caregiver Goals treatment goals include decreasing urinary incontinence and improving strength of the pelvic floor PT-OP-C Subjective Start: 01/21/23 15:05 Freq: Status: Active Protocol: Document 02/02/23 09:50 [facility] (Rec: 02/02/23 10:35 [facility] [id number]) OP-PT Subjective Patient Comments Patient Comments Nazia notes she is feeling a little more with her exercises PT-OP-I Pelvic Floor Start: 01/21/23 15:05 Freq: Status: Active Protocol: Document 01/21/23 15:07 [facility] (Rec: 01/21/23 15:44 [facility] [id number]) Pelvic Floor Assessment Urine Pelvic Floor Surgery No Urinary Symptoms Urge Sensation Leakage Size Medium Leakage Cause Cough,Exercise,Lifting,Sneeze, Urge Leaks Per Day 3 Voiding Frequency 10 per day Nocturia 1 Pads Used In 24 Hours 3 Urine Pad Type Maxi Pad Pelvic Clock Pelvic Clock 12-3 Atrophy Pelvic Clock 3-6 Atrophy Pelvic Clock 6-9 Atrophy Pelvic Clock 9-12 Atrophy Pelvic Clock Other weakness and atrophy noted througout the pelvic clock Contraction Ability Voluntary Contraction Weak Voluntary Relaxation Weak Manual Muscle Testing Left 1 Manual Muscle Testing Right 1 Manual Muscle Testing Anterior 1 Manual Muscle Testing Posterior 2 Muscle Endurance (Seconds) 2 Comments Pelvic Floor Comments very poor endurance to sustain a pelvic floor contraction PT-OP-M Strength Start: 01/21/23 15:05 Freq: Status: Active Protocol: Document 01/21/23 15:07 [facility] (Rec: 01/26/23 15:03 [facility] [id number]) Trunk Strength Trunk Manual Muscle Testing Testing Position Supine Core Stabilization core stabilization weakness of the transverse abdominal muscles , it is difficult to elicit a contraction of the transverse abdominals in supine PT-OP-Q Treatments Start: 01/21/23 15:05 Freq: Status: Active Protocol: Document 02/02/23 09:50 [facility] (Rec: 02/02/23 10:35 [facility] [id number]) Therapeutic Exercises Supine Exercises quick pelvic floor contractions Reps/Minutes x 10 reps hold 2 sec and relax 2 sec hip ER with therabAND Reps/Minutes 2 x 10 reps pelvic floor long holds Reps/Minutes 10 reps holding 10 seconds and resting 10 sec Comments averag 2 max 4.7 Other Exercises TA in quadruped Reps/Minutes x 5 reps Self-Care/Home Management Treatment Education Patient Education Home Exercise Program Other Education Nazia was educated in the urge deference technique and bladder retraining PT-OP-T Assessment and Plan Start: 01/21/23 15:05 Freq: Status: Active Protocol: Document 02/02/23 09:50 [facility] (Rec: 02/02/23 13:31 [facility] [id number]) Physical Therapy Assessment Goals 3 Impairment urinary stress incontinence that is occuring approx 3 times per day and Nazia is wearing maxi pads for protection [facility] Goal (LTG) Nazia reports a overall reduction in urinary leakage and is no longer needing to depend on Maxi pads for protection LTG Duration 12 weeks 2 Impairment Decreased endurance of the pelvic floor Short Term Goal (STG) Nazia is able to demonstrate a 10 second hold of her pelvic floor on EMG biofeedback in the supine position STG Duration 5 weeks [facility] Goal (LTG) Nazia is able to sustain a pelvic floor muscle contraction x 10 seconds in standing LTG Duration 12 weeks 1 Impairment pelvic floor weakness with MMT of 1/5 for anterior and lateral bar[place] and 2/5 MMT for the posterior wall of the levator ani Short Term Goal (STG) Nazia is educated on pelvic floor anatomy and is given a home exercise program for pelvic floor strengthening STG Duration 3 weeks [facility] Goal (LTG) Nazia demonstrates a increase in strength of her pelvic floor muscles and is able to raise he strength by 1 muscle grade or better for improved support to the bladder LTG Duration 12 weeks Assessment Summary Assessment Nazia did better today with pelvic floor isolation. I did add in lateral hip rotation strengthening for her as well and she had improved pelvic floor contractions following. Physical Therapy Plan Frequency and Duration Frequency of Treatment 1x/Week Duration of treatment (weeks) 12 Plan of Care Start Date 01/21/23 Plan of Care End Date 04/15/23 Next Visit Focus/Plan Next Note Type Treatment Note Next Visit Plan review all new exercises and begin NMES next visit for improved pelvic floor sensation
--- NOTE | 2023-03-16 09:42 | PT.OTN ---
Current Diagnoses Pelvic muscle wasting (03/16/23) Unspecified urinary incontinence (03/16/23) Physical Therapy Treatment Note PT-OP-A Visit Information Start: 01/21/23 15:05 Freq: Status: Active Protocol: Document 03/16/23 09:01 [facility] (Rec: 03/16/23 09:33 ON LICENSE OF [facility] [id number]) Out-Patient Physical Therapy Visit Information Visit Information Visit Type Treatment Note Visit Start Time 09:00 Visit Stop Time 09:45 Total Visit Minutes 45 Visit Number 3 PT-OP-B Current Condition Start: 01/21/23 15:05 Freq: Status: Active Protocol: Document 01/21/23 15:07 [facility] (Rec: 01/21/23 15:44 [facility] [id number]) Current Condition History of Current Condition Onset Date October 2022 Current Complaints urinary stress and urge incontinence History of Current Condition 10/13/22 had her second delivery and symptoms began after her first delivery September of 2019, she had a little tearing both times. She notes both symptoms of stress incontinence as well as urgency. Occasionally wakes up at night to void. She has a pad or absorbant underware on daily and most days she can go through the whole day and sometimes when she can't. Treatment Goals Patient/Caregiver Goals treatment goals include decreasing urinary incontinence and improving strength of the pelvic floor PT-OP-C Subjective Start: 01/21/23 15:05 Freq: Status: Active Protocol: Document 03/16/23 09:01 [facility] (Rec: 03/16/23 09:33 ON LICENSE OF [facility] [id number]) OP-PT Subjective Patient Comments Patient Comments Nazia notes she has not been doing well on her own with her exercises. PT-OP-I Pelvic Floor Start: 01/21/23 15:05 Freq: Status: Active Protocol: Document 01/21/23 15:07 [facility] (Rec: 01/21/23 15:44 [facility] [id number]) Pelvic Floor Assessment Urine Pelvic Floor Surgery No Urinary Symptoms Urge Sensation Leakage Size Medium Leakage Cause Cough,Exercise,Lifting,Sneeze, Urge Leaks Per Day 3 Voiding Frequency 10 per day Nocturia 1 Pads Used In 24 Hours 3 Urine Pad Type Maxi Pad Pelvic Clock Pelvic Clock 12-3 Atrophy Pelvic Clock 3-6 Atrophy Pelvic Clock 6-9 Atrophy Pelvic Clock 9-12 Atrophy Pelvic Clock Other weakness and atrophy noted througout the pelvic clock Contraction Ability Voluntary Contraction Weak Voluntary Relaxation Weak Manual Muscle Testing Left 1 Manual Muscle Testing Right 1 Manual Muscle Testing Anterior 1 Manual Muscle Testing Posterior 2 Muscle Endurance (Seconds) 2 Comments Pelvic Floor Comments very poor endurance to sustain a pelvic floor contraction PT-OP-M Strength Start: 01/21/23 15:05 Freq: Status: Active Protocol: Document 01/21/23 15:07 ON LICENSE OF [facility] (Rec: 01/26/23 15:03 ON LICENSE OF [facility] [id number]) Trunk Strength Trunk Manual Muscle Testing Testing Position Supine Core Stabilization core stabilization weakness of the transverse abdominal muscles , it is difficult to elicit a contraction of the transverse abdominals in supine PT-OP-Q Treatments Start: 01/21/23 15:05 Freq: Status: Active Protocol: Document 03/16/23 09:01 ON LICENSE OF [facility] (Rec: 03/16/23 09:33 ON LICENSE OF [facility] [id number]) Therapeutic Exercises Supine Exercises quick pelvic floor contractions Reps/Minutes x 10 reps hold 2 sec and relax 2 sec hip ER with therabAND Reps/Minutes 2 x 10 reps pelvic floor long holds Reps/Minutes 10 reps holding 10 seconds and resting 10 sec Comments 1.9 and 5.1 uv max supine ball squeeze Reps/Minutes 4.7 and max of 11.1 uv 5 sec ond 10 sec off Neuro Re-Education Treatment Other Activities NMES for the pelvic floor Details NMES with vaginal sensor Comments x 10 minutes working on waking up the pelvic floor muscles with vaginal sensor went up to 8 uv and could feel sensation at 5. She feels more sensation towards the back and more on the right side PT-OP-T Assessment and Plan Start: 01/21/23 15:05 Freq: Status: Active Protocol: Document 03/16/23 09:01 ON LICENSE OF [facility] (Rec: 03/16/23 09:33 ON LICENSE OF [facility] [id number]) Physical Therapy Assessment Goals 3 Impairment urinary stress incontinence that is occuring approx 3 times per day and Nazia is wearing maxi pads for protection Snf Goal (LTG) Nazia reports a overall reduction in urinary leakage and is no longer needing to depend on Maxi pads for protection LTG Duration 12 weeks 2 Impairment Decreased endurance of the pelvic floor Short Term Goal (STG) Nazia is able to demonstrate a 10 second hold of her pelvic floor on EMG biofeedback in the supine position STG Duration 5 weeks Snf Goal (LTG) Nazia is able to sustain a pelvic floor muscle contraction x 10 seconds in standing LTG Duration 12 weeks 1 Impairment pelvic floor weakness with MMT of 1/5 for anterior and lateral [place] and 2/5 MMT for the posterior wall of the levator ani Short Term Goal (STG) Nazia is educated on pelvic floor anatomy and is given a home exercise program for pelvic floor strengthening STG Duration 3 weeks Snf Goal (LTG) Nazia demonstrates a increase in strength of her pelvic floor muscles and is able to raise he strength by 1 muscle grade or better for improved support to the bladder LTG Duration 12 weeks Assessment Summary Assessment Deidra was able to start NMES today and felt more sensation on the back wall. She has not been seen since 02/02 and has not gotten into the habit of doing her exercises yet. She has not shown any increase in strength. She does much better when using hip abductors to help recruit pelvic floor strength Physical Therapy Plan Frequency and Duration Frequency of Treatment 1x/Week Duration of treatment (weeks) 12 Plan of Care Start Date 01/21/23 Plan of Care End Date 04/15/23 Therapeutic Interventions Therapeutic Interventions Home Exercise Program, Neuromuscular Re-education, Patient/Caregiver Education, Self-Care/Home Management, Therapeutic Exercises Modalities Biofeedback Next Visit Focus/Plan Next Note Type Treatment Note Next Visit Plan continue with NMES and endurance training for the pelvic floor review TA in quadruped next visit
--- NOTE | 2023-03-23 10:05 | PT.OTN ---
Current Diagnoses Pelvic muscle wasting (03/23/23) Unspecified urinary incontinence (03/23/23) Physical Therapy Treatment Note PT-OP-A Visit Information Start: 01/21/23 15:05 Freq: Status: Active Protocol: Document 03/23/23 08:56 [facility] (Rec: 03/23/23 09:49 [facility] [id number]) Out-Patient Physical Therapy Visit Information Visit Information Visit Type Treatment Note Visit Start Time 09:05 Visit Stop Time 09:47 Total Visit Minutes 42 Visit Number 4 PT-OP-B Current Condition Start: 01/21/23 15:05 Freq: Status: Active Protocol: Document 01/21/23 15:07 [facility] (Rec: 01/21/23 15:44 [facility] [id number]) Current Condition History of Current Condition Onset Date October 2022 Current Complaints urinary stress and urge incontinence History of Current Condition 10/13/22 had her second delivery and symptoms began after her first delivery September of 2019, she had a little tearing both times. She notes both symptoms of stress incontinence as well as urgency. Occasionally wakes up at night to void. She has a pad or absorbant underware on daily and most days she can go through the whole day and sometimes when she can't. Treatment Goals Patient/Caregiver Goals treatment goals include decreasing urinary incontinence and improving strength of the pelvic floor PT-OP-C Subjective Start: 01/21/23 15:05 Freq: Status: Active Protocol: Document 03/23/23 08:56 [facility] (Rec: 03/23/23 09:49 [facility] [id number]) OP-PT Subjective Patient Comments Patient Comments pt notes maybe a little bit of more awareness with her pelvic floor the sides maybe more than she had. She still does not feel she is back in a routine after the holidays PT-OP-I Pelvic Floor Start: 01/21/23 15:05 Freq: Status: Active Protocol: Document 01/21/23 15:07 [facility] (Rec: 01/21/23 15:44 [facility] [id number]) Pelvic Floor Assessment Urine Pelvic Floor Surgery No Urinary Symptoms Urge Sensation Leakage Size Medium Leakage Cause Cough,Exercise,Lifting,Sneeze, Urge Leaks Per Day 3 Voiding Frequency 10 per day Nocturia 1 Pads Used In 24 Hours 3 Urine Pad Type Maxi Pad Pelvic Clock Pelvic Clock 12-3 Atrophy Pelvic Clock 3-6 Atrophy Pelvic Clock 6-9 Atrophy Pelvic Clock 9-12 Atrophy Pelvic Clock Other weakness and atrophy noted througout the pelvic clock Contraction Ability Voluntary Contraction Weak Voluntary Relaxation Weak Manual Muscle Testing Left 1 Manual Muscle Testing Right 1 Manual Muscle Testing Anterior 1 Manual Muscle Testing Posterior 2 Muscle Endurance (Seconds) 2 Comments Pelvic Floor Comments very poor endurance to sustain a pelvic floor contraction PT-OP-M Strength Start: 01/21/23 15:05 Freq: Status: Active Protocol: Document 01/21/23 15:07 [facility] (Rec: 01/26/23 15:03 [facility] [id number]) Trunk Strength Trunk Manual Muscle Testing Testing Position Supine Core Stabilization core stabilization weakness of the transverse abdominal muscles , it is difficult to elicit a contraction of the transverse abdominals in supine PT-OP-Q Treatments Start: 01/21/23 15:05 Freq: Status: Active Protocol: Document 03/23/23 08:56 [facility] (Rec: 03/23/23 09:49 [facility] [id number]) Therapeutic Exercises Supine Exercises templates for coordination and eccentric control Reps/Minutes x 3 min quick pelvic floor contractions Reps/Minutes x 10 reps hold 2 sec and relax 2 sec Comments max of 8.2 uv hip ER with therabAND Reps/Minutes 2 x 10 reps pelvic floor long holds Reps/Minutes 10 reps holding 10 seconds and resting 10 sec Comments 3.9 uv and max of 8 uv Sidelying Exercises clam shells Reps/Minutes x 10 reps with level 2 band Other Exercises TA in quadruped Reps/Minutes x 5 reps Neuro Re-Education Treatment Other Activities NMES for the pelvic floor Details NMES with vaginal sensor Comments started at level 6 able to feel the front of the pelvic floor today and on the left side she went up to level 8 on NMES PT-OP-T Assessment and Plan Start: 01/21/23 15:05 Freq: Status: Active Protocol: Document 03/23/23 08:56 [facility] (Rec: 03/23/23 09:49 [facility] [id number]) Physical Therapy Assessment Goals 3 Impairment urinary stress incontinence that is occuring approx 3 times per day and Nazia is wearing maxi pads for protection [employer] Goal (LTG) Nazia reports a overall reduction in urinary leakage and is no longer needing to depend on Maxi pads for protection LTG Duration 12 weeks 2 Impairment Decreased endurance of the pelvic floor Short Term Goal (STG) Nazia is able to demonstrate a 10 second hold of her pelvic floor on EMG biofeedback in the supine position STG Duration 5 weeks [facility] Goal (LTG) Nazia is able to sustain a pelvic floor muscle contraction x 10 seconds in standing LTG Duration 12 weeks 1 Impairment pelvic floor weakness with MMT of 1/5 for anterior and lateral [place] and 2/5 MMT for the posterior wall of the levator ani Short Term Goal (STG) Nazia is educated on pelvic floor anatomy and is given a home exercise program for pelvic floor strengthening STG Duration 3 weeks [facility] Goal (LTG) Nazia demonstrates a increase in strength of her pelvic floor muscles and is able to raise he strength by 1 muscle grade or better for improved support to the bladder LTG Duration 12 weeks Assessment Summary Assessment Deidra did better today with her ability to sustain a contraction as well as her max on EMG biofeedback. I added in clam shells in sidelying and she tolerated these well today Physical Therapy Plan Frequency and Duration Frequency of Treatment 1x/Week Duration of treatment (weeks) 12 Plan of Care Start Date 01/21/23 Plan of Care End Date 04/15/23 Therapeutic Interventions Therapeutic Interventions Home Exercise Program, Neuromuscular Re-education, Patient/Caregiver Education, Self-Care/Home Management, Therapeutic Exercises Modalities Biofeedback Next Visit Focus/Plan Next Note Type Treatment Note Next Visit Plan work on EMG biofeedback templates for coordination and eccentric control
--- NOTE | 2023-04-06 08:59 | PT.OTN ---
Current Diagnoses Pelvic muscle wasting (04/06/23) Unspecified urinary incontinence (04/06/23) Physical Therapy Treatment Note PT-OP-A Visit Information Start: 01/21/23 15:05 Freq: Status: Active Protocol: Document 04/06/23 08:11 [facility] (Rec: 04/06/23 08:59 [facility] [id number]) Out-Patient Physical Therapy Visit Information Visit Information Visit Type Treatment Note Visit Start Time 09:00 Visit Stop Time 09:45 Total Visit Minutes 45 Visit Number 5 PT-OP-B Current Condition Start: 01/21/23 15:05 Freq: Status: Active Protocol: Document 01/21/23 15:07 [facility] (Rec: 01/21/23 15:44 [facility] [id number]) Current Condition History of Current Condition Onset Date October 2022 Current Complaints urinary stress and urge incontinence History of Current Condition 10/13/22 had her second delivery and symptoms began after her first delivery September of 2019, she had a little tearing both times. She notes both symptoms of stress incontinence as well as urgency. Occasionally wakes up at night to void. She has a pad or absorbant underware on daily and most days she can go through the whole day and sometimes when she can't. Treatment Goals Patient/Caregiver Goals treatment goals include decreasing urinary incontinence and improving strength of the pelvic floor PT-OP-C Subjective Start: 01/21/23 15:05 Freq: Status: Active Protocol: Document 04/06/23 08:11 [facility] (Rec: 04/06/23 08:59 [facility] [id number]) OP-PT Subjective Patient Comments Patient Comments pt notes she has a little bit more awareness, still some leaking but better PT-OP-I Pelvic Floor Start: 01/21/23 15:05 Freq: Status: Active Protocol: Document 01/21/23 15:07 [facility] (Rec: 01/21/23 15:44 [facility] [id number]) Pelvic Floor Assessment Urine Pelvic Floor Surgery No Urinary Symptoms Urge Sensation Leakage Size Medium Leakage Cause Cough,Exercise,Lifting,Sneeze, Urge Leaks Per Day 3 Voiding Frequency 10 per day Nocturia 1 Pads Used In 24 Hours 3 Urine Pad Type Maxi Pad Pelvic Clock Pelvic Clock 12-3 Atrophy Pelvic Clock 3-6 Atrophy Pelvic Clock 6-9 Atrophy Pelvic Clock 9-12 Atrophy Pelvic Clock Other weakness and atrophy noted througout the pelvic clock Contraction Ability Voluntary Contraction Weak Voluntary Relaxation Weak Manual Muscle Testing Left 1 Manual Muscle Testing Right 1 Manual Muscle Testing Anterior 1 Manual Muscle Testing Posterior 2 Muscle Endurance (Seconds) 2 Comments Pelvic Floor Comments very poor endurance to sustain a pelvic floor contraction PT-OP-M Strength Start: 01/21/23 15:05 Freq: Status: Active Protocol: Document 01/21/23 15:07 [facility] (Rec: 01/26/23 15:03 [facility] [id number]) Trunk Strength Trunk Manual Muscle Testing Testing Position Supine Core Stabilization core stabilization weakness of the transverse abdominal muscles , it is difficult to elicit a contraction of the transverse abdominals in supine PT-OP-Q Treatments Start: 01/21/23 15:05 Freq: Status: Active Protocol: Document 04/06/23 08:11 [facility] (Rec: 04/06/23 08:59 [facility] [id number]) Therapeutic Exercises Supine Exercises templates for coordination and eccentric control Reps/Minutes x 5 min quick pelvic floor contractions Reps/Minutes x 10 reps hold 2 sec and relax 2 sec Comments max 7 uv pelvic floor long holds Reps/Minutes 10 reps holding 10 seconds and resting 10 sec Comments 3.7 max of 7.1 Sidelying Exercises clam shells Reps/Minutes 3 x 10 Neuro Re-Education Treatment Other Activities NMES for the pelvic floor Details NMES with vaginal sensor Comments started at level 7 today PT-OP-T Assessment and Plan Start: 01/21/23 15:05 Freq: Status: Active Protocol: Document 04/06/23 08:11 [facility] (Rec: 04/06/23 08:59 [facility] [id number]) Physical Therapy Assessment Goals 3 Impairment urinary stress incontinence that is occuring approx 3 times per day and Nazia is wearing maxi pads for protection Alf Goal (LTG) Nazia reports a overall reduction in urinary leakage and is no longer needing to depend on Maxi pads for protection Good progress as leakage is decreased to 2 times per day LTG Duration 12 weeks 2 Impairment Decreased endurance of the pelvic floor Short Term Goal (STG) Nazia is able to demonstrate a 10 second hold of her pelvic floor on EMG biofeedback in the supine position STG Duration 5 weeks Alf Goal (LTG) Nazia is able to sustain a pelvic floor muscle contraction x 10 seconds in standing LTG Duration 12 weeks 1 Impairment pelvic floor weakness with MMT of 1/5 for anterior and lateral [place] and 2/5 MMT for the posterior wall of the levator ani Short Term Goal (STG) Nazia is educated on pelvic floor anatomy and is given a home exercise program for pelvic floor strengthening STG Duration 3 weeks Alf Goal (LTG) Nazia demonstrates a increase in strength of her pelvic floor muscles and is able to raise he strength by 1 muscle grade or better for improved support to the bladder LTG Duration 12 weeks Assessment Summary Assessment Deidra continues to show improvements with strength and endurance. Will do a recheck next visit Physical Therapy Plan Frequency and Duration Frequency of Treatment 1x/Week Duration of treatment (weeks) 12 Plan of Care Start Date 01/21/23 Plan of Care End Date 04/15/23 Therapeutic Interventions Therapeutic Interventions Home Exercise Program, Neuromuscular Re-education, Patient/Caregiver Education, Self-Care/Home Management, Therapeutic Exercises Modalities Biofeedback Next Visit Focus/Plan Next Note Type Progress Note Next Visit Plan reassess pelvic floor strength next visit
--- NOTE | 2023-04-06 11:45 | PT.OTN ---
Current Diagnoses Pelvic muscle wasting (04/06/23) Unspecified urinary incontinence (04/06/23) Physical Therapy Treatment Note PT-OP-A Visit Information Start: 01/21/23 15:05 Freq: Status: Active Protocol: Document 04/06/23 08:11 [facility] (Rec: 04/06/23 08:59 [facility] [id number]) Out-Patient Physical Therapy Visit Information Visit Information Visit Type Treatment Note Visit Start Time 09:00 Visit Stop Time 09:45 Total Visit Minutes 45 Visit Number 5 PT-OP-B Current Condition Start: 01/21/23 15:05 Freq: Status: Active Protocol: Document 01/21/23 15:07 [facility] (Rec: 01/21/23 15:44 [facility] [id number]) Current Condition History of Current Condition Onset Date October 2022 Current Complaints urinary stress and urge incontinence History of Current Condition 10/13/22 had her second delivery and symptoms began after her first delivery September of 2019, she had a little tearing both times. She notes both symptoms of stress incontinence as well as urgency. Occasionally wakes up at night to void. She has a pad or absorbant underware on daily and most days she can go through the whole day and sometimes when she can't. Treatment Goals Patient/Caregiver Goals treatment goals include decreasing urinary incontinence and improving strength of the pelvic floor PT-OP-C Subjective Start: 01/21/23 15:05 Freq: Status: Active Protocol: Document 04/06/23 08:11 [facility] (Rec: 04/06/23 08:59 [facility] [id number]) OP-PT Subjective Patient Comments Patient Comments pt notes she has a little bit more awareness, still some leaking but better PT-OP-I Pelvic Floor Start: 01/21/23 15:05 Freq: Status: Active Protocol: Document 01/21/23 15:07 [facility] (Rec: 01/21/23 15:44 [facility] [id number]) Pelvic Floor Assessment Urine Pelvic Floor Surgery No Urinary Symptoms Urge Sensation Leakage Size Medium Leakage Cause Cough,Exercise,Lifting,Sneeze, Urge Leaks Per Day 3 Voiding Frequency 10 per day Nocturia 1 Pads Used In 24 Hours 3 Urine Pad Type Maxi Pad Pelvic Clock Pelvic Clock 12-3 Atrophy Pelvic Clock 3-6 Atrophy Pelvic Clock 6-9 Atrophy Pelvic Clock 9-12 Atrophy Pelvic Clock Other weakness and atrophy noted througout the pelvic clock Contraction Ability Voluntary Contraction Weak Voluntary Relaxation Weak Manual Muscle Testing Left 1 Manual Muscle Testing Right 1 Manual Muscle Testing Anterior 1 Manual Muscle Testing Posterior 2 Muscle Endurance (Seconds) 2 Comments Pelvic Floor Comments very poor endurance to sustain a pelvic floor contraction PT-OP-M Strength Start: 01/21/23 15:05 Freq: Status: Active Protocol: Document 01/21/23 15:07 [facility] (Rec: 01/26/23 15:03 [facility] [id number]) Trunk Strength Trunk Manual Muscle Testing Testing Position Supine Core Stabilization core stabilization weakness of the transverse abdominal muscles , it is difficult to elicit a contraction of the transverse abdominals in supine PT-OP-Q Treatments Start: 01/21/23 15:05 Freq: Status: Active Protocol: Document 04/06/23 08:11 [facility] (Rec: 04/06/23 08:59 [facility] [id number]) Therapeutic Exercises Supine Exercises templates for coordination and eccentric control Reps/Minutes x 5 min quick pelvic floor contractions Reps/Minutes x 10 reps hold 2 sec and relax 2 sec Comments max 7 uv pelvic floor long holds Reps/Minutes 10 reps holding 10 seconds and resting 10 sec Comments 3.7 max of 7.1 Sidelying Exercises clam shells Reps/Minutes 3 x 10 Neuro Re-Education Treatment Other Activities NMES for the pelvic floor Details NMES with vaginal sensor Comments started at level 7 today PT-OP-T Assessment and Plan Start: 01/21/23 15:05 Freq: Status: Active Protocol: Document 04/06/23 08:11 [facility] (Rec: 04/06/23 08:59 [facility] [id number]) Physical Therapy Assessment Goals 3 Impairment urinary stress incontinence that is occuring approx 3 times per day and Nazia is wearing maxi pads for protection [facility] Goal (LTG) Nazia reports a overall reduction in urinary leakage and is no longer needing to depend on Maxi pads for protection Good progress as leakage is decreased to 2 times per day LTG Duration 12 weeks 2 Impairment Decreased endurance of the pelvic floor Short Term Goal (STG) Nazia is able to demonstrate a 10 second hold of her pelvic floor on EMG biofeedback in the supine position STG Duration 5 weeks [facility] Goal (LTG) Nazia is able to sustain a pelvic floor muscle contraction x 10 seconds in standing LTG Duration 12 weeks 1 Impairment pelvic floor weakness with MMT of 1/5 for anterior and lateral [place] and 2/5 MMT for the posterior wall of the levator ani Short Term Goal (STG) Nazia is educated on pelvic floor anatomy and is given a home exercise program for pelvic floor strengthening STG Duration 3 weeks [facility] Goal (LTG) Nazia demonstrates a increase in strength of her pelvic floor muscles and is able to raise he strength by 1 muscle grade or better for improved support to the bladder LTG Duration 12 weeks Assessment Summary Assessment Deidra continues to show improvements with strength and endurance. Will do a recheck next visit to check tone and strength of the levator ani Physical Therapy Plan Frequency and Duration Frequency of Treatment 1x/Week Duration of treatment (weeks) 12 Plan of Care Start Date 01/21/23 Plan of Care End Date 04/15/23 Therapeutic Interventions Therapeutic Interventions Home Exercise Program, Neuromuscular Re-education, Patient/Caregiver Education, Self-Care/Home Management, Therapeutic Exercises Modalities Biofeedback Next Visit Focus/Plan Next Note Type Progress Note Next Visit Plan reassess pelvic floor strength next visit and continue with endurance training
--- NOTE | 2023-04-13 09:08 | PT.OTN ---
Current Diagnoses Pelvic muscle wasting (04/13/23) Unspecified urinary incontinence (04/13/23) Physical Therapy Treatment Note PT-OP-A Visit Information Start: 01/21/23 15:05 Freq: Status: Active Protocol: Document 04/13/23 08:27 [facility] (Rec: 04/13/23 09:07 [facility] [id number]) Out-Patient Physical Therapy Visit Information Visit Information Visit Type Treatment Note Visit Start Time 08:27 Visit Stop Time 09:00 Visit Number 6 PT-OP-B Current Condition Start: 01/21/23 15:05 Freq: Status: Active Protocol: Document 01/21/23 15:07 [facility] (Rec: 01/21/23 15:44 [facility] [id number]) Current Condition History of Current Condition Onset Date October 2022 Current Complaints urinary stress and urge incontinence History of Current Condition 10/13/22 had her second delivery and symptoms began after her first delivery September of 2019, she had a little tearing both times. She notes both symptoms of stress incontinence as well as urgency. Occasionally wakes up at night to void. She has a pad or absorbant underware on daily and most days she can go through the whole day and sometimes when she can't. Treatment Goals Patient/Caregiver Goals treatment goals include decreasing urinary incontinence and improving strength of the pelvic floor PT-OP-C Subjective Start: 01/21/23 15:05 Freq: Status: Active Protocol: Document 04/13/23 08:27 [facility] (Rec: 04/13/23 09:07 [facility] [id number]) OP-PT Subjective Patient Comments Patient Comments pt notes a little less leakage now PT-OP-I Pelvic Floor Start: 01/21/23 15:05 Freq: Status: Active Protocol: Document 01/21/23 15:07 [facility] (Rec: 01/21/23 15:44 [facility] [id number]) Pelvic Floor Assessment Urine Pelvic Floor Surgery No Urinary Symptoms Urge Sensation Leakage Size Medium Leakage Cause Cough,Exercise,Lifting,Sneeze, Urge Leaks Per Day 3 Voiding Frequency 10 per day Nocturia 1 Pads Used In 24 Hours 3 Urine Pad Type Maxi Pad Pelvic Clock Pelvic Clock 12-3 Atrophy Pelvic Clock 3-6 Atrophy Pelvic Clock 6-9 Atrophy Pelvic Clock 9-12 Atrophy Pelvic Clock Other weakness and atrophy noted througout the pelvic clock Contraction Ability Voluntary Contraction Weak Voluntary Relaxation Weak Manual Muscle Testing Left 1 Manual Muscle Testing Right 1 Manual Muscle Testing Anterior 1 Manual Muscle Testing Posterior 2 Muscle Endurance (Seconds) 2 Comments Pelvic Floor Comments very poor endurance to sustain a pelvic floor contraction PT-OP-M Strength Start: 01/21/23 15:05 Freq: Status: Active Protocol: Document 01/21/23 15:07 [facility] (Rec: 01/26/23 15:03 [facility] [id number]) Trunk Strength Trunk Manual Muscle Testing Testing Position Supine Core Stabilization core stabilization weakness of the transverse abdominal muscles , it is difficult to elicit a contraction of the transverse abdominals in supine PT-OP-Q Treatments Start: 01/21/23 15:05 Freq: Status: Active Protocol: Document 04/13/23 08:27 [facility] (Rec: 04/13/23 09:07 [facility] [id number]) Therapeutic Exercises Supine Exercises ball squeeze with bridges Reps/Minutes x 10 reps quick pelvic floor contractions Reps/Minutes x 10 reps hold 2 sec and relax 2 sec Comments max 7 uv hip ER with therabAND Reps/Minutes 2 x 10 reps pelvic floor long holds Reps/Minutes 10 reps holding 10 seconds and resting 10 sec Comments 4.1 max of 8.4 uv Neuro Re-Education Treatment Other Activities NMES for the pelvic floor Details NMES with vaginal sensor Comments level 7 today and she can feel the anterior portion of the levator ani PT-OP-T Assessment and Plan Start: 01/21/23 15:05 Freq: Status: Active Protocol: Document 04/13/23 08:27 [facility] (Rec: 04/13/23 09:07 [facility] [id number]) Physical Therapy Assessment Goals 3 Impairment urinary stress incontinence that is occuring approx 3 times per day and Nazia is wearing maxi pads for protection [facility] Goal (LTG) Nazia reports a overall reduction in urinary leakage and is no longer needing to depend on Maxi pads for protection Good progress as leakage is decreased to 2 times per day and pt is going through just one pad per day LTG Duration 12 weeks 2 Impairment Decreased endurance of the pelvic floor Short Term Goal (STG) Nazia is able to demonstrate a 10 second hold of her pelvic floor on EMG biofeedback in the supine position GOAL MET STG Duration 5 weeks [employer] Goal (LTG) Nazia is able to sustain a pelvic floor muscle contraction x 10 seconds in standing Goal not yet met and we will be progressing to standing next visit LTG Duration 12 weeks 1 Impairment pelvic floor weakness with MMT of 1/5 for anterior and lateral [place] and 2/5 MMT for the posterior wall of the levator ani Short Term Goal (STG) Nazia is educated on pelvic floor anatomy and is given a home exercise program for pelvic floor strengthening Good progress and her home program is updated frequently as she improves strength STG Duration 3 weeks [facility] Goal (LTG) Nazia demonstrates a increase in strength of her pelvic floor muscles and is able to raise he strength by 1 muscle grade or better for improved support to the bladder Good progress LTG Duration 12 weeks Assessment Summary Assessment Deidra has decreased pad use and she is noticing a small amount of change now with her symptoms, she can still feel leakage with exercises and with coughing and sneezing. She is showing progress with EMG biofeedback for pelvic floor strength and endurance. She would benefit from continue PT to meet her above stated goals Physical Therapy Plan Frequency and Duration Frequency of Treatment 1x/Week Duration of treatment (weeks) 8 Plan of Care Start Date 04/13/23 Plan of Care End Date 06/08/23 Therapeutic Interventions Therapeutic Interventions Home Exercise Program, Neuromuscular Re-education, Patient/Caregiver Education, Self-Care/Home Management, Therapeutic Exercises Modalities Biofeedback Next Visit Focus/Plan Next Note Type Treatment Note Next Visit Plan Begin working on pelvic floor strengthening in upright positions and continue working the endurance of the pelvic floor
--- NOTE | 2023-04-13 09:08 | PT.OPPOC ---
Physical, Occupational & Speech Therapy At [facility] Current Diagnoses Pelvic muscle wasting (04/13/23) Unspecified urinary incontinence (04/13/23) Visit Care Team Role Provider Type Eugenio MTZ Provider Primary Care Provider Non-Staff Specialty: Medical Address: Phone: Email: Jessie Carranza PA-C Attending Provider [employer] Referring Provider Specialty: Medical Address: [address] [place] [address], [address], [place], [address] Phone: Fax: Email: Plan Of Care PT-OP-T Assessment and Plan Start: 01/21/23 15:05 Freq: Status: Active Protocol: Document 04/13/23 08:27 [facility] (Rec: 04/13/23 09:07 [facility] [id number]) Physical Therapy Assessment Goals 3 Impairment urinary stress incontinence that is occurring approx 3 times per day and Nazia is wearing maxi pads for protection [employer] Goal (LTG) Nazia reports a overall reduction in urinary leakage and is no longer needing to depend on Maxi pads for protection Good progress as leakage is decreased to 2 times per day and pt is going through just one pad per day LTG Duration 12 weeks 2 Impairment Decreased endurance of the pelvic floor Short Term Goal (STG) Nazia is able to demonstrate a 10 second hold of her pelvic floor on EMG biofeedback in the supine position GOAL MET STG Duration 5 weeks [employer] Goal (LTG) Nazia is able to sustain a pelvic floor muscle contraction x 10 seconds in standing Goal not yet met and we will be progressing to standing next visit LTG Duration 12 weeks 1 Impairment pelvic floor weakness with MMT of 1/5 for anterior and lateral [place] and 2/5 MMT for the posterior wall of the levator ani Short Term Goal (STG) Nazia is educated on pelvic floor anatomy and is given a home exercise program for pelvic floor strengthening Good progress and her home program is updated frequently as she improves strength STG Duration 3 weeks [employer] Goal (LTG) Nazia demonstrates a increase in strength of her pelvic floor muscles and is able to raise he strength by 1 muscle grade or better for improved support to the bladder Good progress LTG Duration 12 weeks Assessment Summary Assessment Deidra has decreased pad use and she is noticing a small amount of change now with her symptoms, she can still feel leakage with exercises and with coughing and sneezing. She is showing progress with EMG biofeedback for pelvic floor strength and endurance. She would benefit from continue PT to meet her above stated goals Physical Therapy Plan Frequency and Duration Frequency of Treatment 1x/Week Duration of treatment (weeks) 8 Plan of Care Start Date 04/13/23 Plan of Care End Date 06/08/23 Therapeutic Interventions Therapeutic Interventions Home Exercise Program, Neuromuscular Re-education, Patient/Caregiver Education, Self-Care/Home Management, Therapeutic Exercises Modalities Biofeedback Next Visit Focus/Plan Next Note Type Treatment Note Next Visit Plan Begin working on pelvic floor strengthening in upright positions and continue working the endurance of the pelvic floor Plan of Care Dates Plan of Care Start Date 04/13/23 Plan of Care End Date 06/08/23 Electronically Signed by: Marilyn Velazquez, PT 04/13/23 0908 If you are in agreement with this Plan of Care, please return a signed and dated copy. I have reviewed this Plan of Care and certify that the skilled therapy services above are required to meet the patient?s needs. Physician Signature Date Printed Name and Credentials Clinical Instructor Signature Printed Name and Credentials
--- NOTE | 2023-05-11 16:57 | PT.OTN ---
Current Diagnoses Pelvic muscle wasting (05/11/23) Unspecified urinary incontinence (05/11/23) Physical Therapy Treatment Note PT-OP-A Visit Information Start: 01/21/23 15:05 Freq: Status: Active Protocol: Document 05/11/23 08:25 [facility] (Rec: 05/11/23 09:00 [facility] [id number]) Out-Patient Physical Therapy Visit Information Visit Information Visit Type Treatment Note Visit Start Time 08:23 Visit Stop Time 09:00 Visit Number 7 Evaluation Information Evaluation Date 01/21/23 PT-OP-B Current Condition Start: 01/21/23 15:05 Freq: Status: Active Protocol: Document 01/21/23 15:07 [facility] (Rec: 01/21/23 15:44 [facility] [id number]) Current Condition History of Current Condition Onset Date October 2022 Current Complaints urinary stress and urge incontinence History of Current Condition 10/13/22 had her second delivery and symptoms began after her first delivery September of 2019, she had a little tearing both times. She notes both symptoms of stress incontinence as well as urgency. Occasionally wakes up at night to void. She has a pad or absorbant underware on daily and most days she can go through the whole day and sometimes when she can't. Treatment Goals Patient/Caregiver Goals treatment goals include decreasing urinary incontinence and improving strength of the pelvic floor PT-OP-C Subjective Start: 01/21/23 15:05 Freq: Status: Active Protocol: Document 05/11/23 08:25 [facility] (Rec: 05/11/23 09:00 [facility] [id number]) OP-PT Subjective Patient Comments Patient Comments pt notes today is her last visit, she feels like she has helpful tools now to continue with for home. She is down to 1 leak per day and notices this with a squat position. PT-OP-I Pelvic Floor Start: 01/21/23 15:05 Freq: Status: Active Protocol: Document 01/21/23 15:07 [facility] (Rec: 01/21/23 15:44 [facility] [id number]) Pelvic Floor Assessment Urine Pelvic Floor Surgery No Urinary Symptoms Urge Sensation Leakage Size Medium Leakage Cause Cough,Exercise,Lifting,Sneeze, Urge Leaks Per Day 3 Voiding Frequency 10 per day Nocturia 1 Pads Used In 24 Hours 3 Urine Pad Type Maxi Pad Pelvic Clock Pelvic Clock 12-3 Atrophy Pelvic Clock 3-6 Atrophy Pelvic Clock 6-9 Atrophy Pelvic Clock 9-12 Atrophy Pelvic Clock Other weakness and atrophy noted througout the pelvic clock Contraction Ability Voluntary Contraction Weak Voluntary Relaxation Weak Manual Muscle Testing Left 1 Manual Muscle Testing Right 1 Manual Muscle Testing Anterior 1 Manual Muscle Testing Posterior 2 Muscle Endurance (Seconds) 2 Comments Pelvic Floor Comments very poor endurance to sustain a pelvic floor contraction PT-OP-M Strength Start: 01/21/23 15:05 Freq: Status: Active Protocol: Document 01/21/23 15:07 [facility] (Rec: 01/26/23 15:03 [facility] [id number]) Trunk Strength Trunk Manual Muscle Testing Testing Position Supine Core Stabilization core stabilization weakness of the transverse abdominal muscles , it is difficult to elicit a contraction of the transverse abdominals in supine PT-OP-Q Treatments Start: 01/21/23 15:05 Freq: Status: Active Protocol: Document 05/11/23 08:25 [facility] (Rec: 05/11/23 09:00 [facility] [id number]) Therapeutic Exercises Supine Exercises happy baby stretch Reps/Minutes hold 1-2 min supine squat stretch Reps/Minutes hold 1-2 min quick pelvic floor contractions Reps/Minutes x 10 reps hold 2 sec and relax 2 sec Comments max 7 uv pelvic floor long holds Reps/Minutes 10 reps holding 10 seconds and resting 10 sec supine ball squeeze Reps/Minutes 4.7 and max of 11.1 uv 5 sec ond 10 sec off Neuro Re-Education Treatment Other Activities NMES for the pelvic floor Details NMES with vaginal sensor Comments pt could feel the NMES at level 5 today, she is able to feel the front portion PT-OP-T Assessment and Plan Start: 01/21/23 15:05 Freq: Status: Active Protocol: Document 05/11/23 08:25 [facility] (Rec: 05/11/23 09:00 [facility] [id number]) Physical Therapy Assessment Goals 3 Impairment urinary stress incontinence that is occuring approx 3 times per day and Nazia is wearing maxi pads for protection [employer] Goal (LTG) Nazia reports a overall reduction in urinary leakage and is no longer needing to depend on Maxi pads for protection Great progress as leakage is decreased to 1 times per day and pt is going through just one pad per day LTG Duration 12 weeks 2 Impairment Decreased endurance of the pelvic floor Short Term Goal (STG) Nazia is able to demonstrate a 10 second hold of her pelvic floor on EMG biofeedback in the supine position GOAL MET STG Duration 5 weeks [employer] Goal (LTG) Nazia is able to sustain a pelvic floor muscle contraction x 10 seconds in standing Goal not yet met and we will be progressing to standing next visit LTG Duration 12 weeks 1 Impairment pelvic floor weakness with MMT of 1/5 for anterior and lateral [place] and 2/5 MMT for the posterior wall of the levator ani Short Term Goal (STG) Nazia is educated on pelvic floor anatomy and is given a home exercise program for pelvic floor strengthening Good progress and her home program is updated frequently as she improves strength STG Duration 3 weeks [employer] Goal (LTG) Nazia demonstrates a increase in strength of her pelvic floor muscles and is able to raise he strength by 1 muscle grade or better for improved support to the bladder Good progress LTG Duration 12 weeks Assessment Summary Assessment Deidra continues to note progress and although her leakage is not 100 percent gone it has been reduced to approx 1 leak per day. She is able to demonstrate her HEP now and is feeling good about this being her last visit. Physical Therapy Plan Discharge Physical Therapy Discharge Comments good progress towards goals and Nazia is feeling independent with her HEP
== END 2023-05-12 10:39 | disposition home or self-care (01) ==
LOC: PHYS 08:15
PROVIDERS: Referring Provider Physician Assistant Medical; Visit Provider Physician Assistant Medical
DX: R32 Unspecified urinary incontinence (principal); N81.84 Pelvic muscle wasting
CPT/HCPCS: 97110; 97112; 97161; 97535